=== PATIENT | male | born 1960 | race Caucasian/White ===

== ENCOUNTER 2020-08-15 08:53 | Outpatient (CLI) | payer BC ==
[2020-08-15 12:03] LABS: Hemoglobin 14.9 g/dL (13.5-17.5); Mean Corpuscular HGB CONC 33.5 g/dL (32.0-36.0); Mean Corpuscular Hemoglobin 31.5 pg (27.0-33.0); Mean Corpuscular Volume 94.1 fl (81.2-95.1); Mean Platelet Volume 9.9 fl (7.4-10.4); Platelet Count 250 10x3/uL (150-450); RBC Distribution Width 12.2 % (11.5-14.5); Red Blood Cell (RBC) Count 4.73 10x6/uL (4.32-5.72); White Blood Cell (WBC) Count 5.8 10x3/uL (3.5-10.5)
[2020-08-15 12:34] LABS: Anion Gap 12 mmol/L (10-20); BUN (Urea Nitrogen) 19 mg/dL (8.4-25.7); Calc. Creatinine Clearance 0 mL/min (70-130); Carbon Dioxide 25 mmol/L (22-29); Chloride 105 mmol/L (98-107); Glucose 78 mg/dL (70-105); Potassium 4.6 mmol/L (3.5-5.1); Sodium 137 mmol/L (136-145)
[2020-08-15 18:20] LABS: SARS-CoV-2 PCR by NAA Not Detected (NotDetected)
== END 2020-08-15 08:54 | disposition home or self-care (01) ==
LOC: LABBT 08:53
PROVIDERS: ATTEND Neurological Surgery
DX: Z01.818 Encounter for other preprocedural examination (principal); M43.16 Spondylolisthesis, lumbar region; Z20.822 Contact with and (suspected) exposure to COVID-19
CPT/HCPCS: 80048; 85027; 87635; 93005; 93010; U0003; U0005

== ENCOUNTER 2020-08-20 05:57 | Inpatient (IN) | payer BC ==
[2020-08-20] MEDS ORDERED: Fentanyl 250 MCG/5 ML VIAL ONE (06:55)
[2020-08-20] MEDS ORDERED: Ketorolac Tromethamine 30 MG/ML VIAL ONE (07:25)
[2020-08-20] MEDS ORDERED: Lidocaine 1% PF 5 ML VIAL ONE (07:25)
[2020-08-20] MEDS ORDERED: Dexamethasone 20 MG/5 ML VIAL ONE (07:25)
[2020-08-20] MEDS ORDERED: Ondansetron PF 4 MG/2 ML Vial ONE (07:25)
[2020-08-20] MEDS ORDERED: Glycopyrrolate 0.2 MG/ML 5 ML SYRINGE ONE (07:25)
[2020-08-20] MEDS ORDERED: PROPOFOL 200 MG/20 ML VIAL ONE (07:25)
[2020-08-20] MEDS ORDERED: Rocuronium Bromide 10 MG/ML (10ML VIAL) ONE (07:25)
[2020-08-20] MEDS ORDERED: Fentanyl 100 MCG/2 ML VIAL ONE (09:31)
[2020-08-20] MEDS ORDERED: HYDROcodone/Acetaminophen 5/325 mg Tablet ONE ×2 (11:04→15:53)
[2020-08-20] MEDS ORDERED: Dexamethasone 4 mg/ml Vial ONE (12:03)
[2020-08-20] MEDS ORDERED: Gabapentin 300 MG CAP ONE (12:09)
[2020-08-20 18:12] VITALS: BMI 27.4
[2020-08-20] MEDS: Gabapentin 300 MG CAP PO SCH ×2 (18:19→20:18)
[2020-08-20] MEDS ORDERED: Morphine 4 MG/ML VIAL SLOW IVP PRN ×2 (18:20→18:30)
[2020-08-20] MEDS ORDERED: Ondansetron PF 4 MG/2 ML Vial IM PRN (18:21)
[2020-08-20] MEDS ORDERED: Acetaminophen/Codeine 30-300mg Tablet PO PRN ×2 (18:30)
[2020-08-20] MEDS ORDERED: Promethazine HCl 12.5 MG SUPP PR PRN (18:30)
[2020-08-20] MEDS ORDERED: Milk Of Magnesia 30 ML UDCUP PO PRN (18:30)
[2020-08-20] MEDS ORDERED: diphenhydrAMINE 50 MG/ML VIAL IVP PRN (18:30)
[2020-08-20] MEDS ORDERED: diphenhydrAMINE 25 MG CAP PO PRN (18:30)
[2020-08-20] MEDS ORDERED: traMADol HCl 50 MG TAB PO PRN (18:30)
[2020-08-20] MEDS ORDERED: Promethazine HCl 25 MG/ML VIAL IM PRN (18:30)
[2020-08-20] MEDS ORDERED: Promethazine 25 MG TAB PO PRN (18:30)
[2020-08-20] MEDS: Sodium Chloride 0.9% 1,000 ML IV SCH (20:19)
[2020-08-20] MEDS: traMADol HCl 50 MG TAB PO PRN (20:23)
[2020-08-20] MEDS: Mag-Al 1200 mg/1200 mg/30 ML UDCUP PO PRN (23:16)
[2020-08-21] MEDS: traMADol HCl 50 MG TAB PO PRN ×3 (03:21→22:11)
[2020-08-21] MEDS: Mag-Al 1200 mg/1200 mg/30 ML UDCUP PO PRN (03:26)
[2020-08-21] MEDS: tiZANidine HCl 4 MG TAB PO PRN ×2 (06:58→22:05)
[2020-08-21] MEDS ORDERED: Dexamethasone 4 mg/ml Vial SLOW IVP SCH (07:00)
[2020-08-21] MEDS: Gabapentin 300 MG CAP PO SCH ×3 (08:21→21:03)
[2020-08-21] MEDS: Sodium Chloride 0.9% 1,000 ML IV SCH ×2 (08:21→22:23)
[2020-08-21] MEDS ORDERED: CEFAZOLIN 2 GM in Premix Bag 1 BAG IVPB SCH (16:00)
[2020-08-21] MEDS ORDERED: Sodium Chloride 0.9% 10 ML ONE (16:05)
[2020-08-21] MEDS ORDERED: Fentanyl 100 MCG/2 ML VIAL ONE ×2 (16:25→18:01)
[2020-08-21] MEDS ORDERED: Dexamethasone 20 MG/5 ML VIAL ONE (16:30)
[2020-08-21] MEDS ORDERED: Rocuronium Bromide 10 MG/ML (10ML VIAL) ONE (16:30)
[2020-08-21] MEDS ORDERED: Glycopyrrolate 0.2 MG/ML 5 ML SYRINGE ONE (16:30)
[2020-08-21] MEDS ORDERED: Ondansetron PF 4 MG/2 ML Vial ONE (16:30)
[2020-08-21] MEDS ORDERED: Lidocaine 1% PF 5 ML VIAL ONE (16:30)
[2020-08-21] MEDS ORDERED: PROPOFOL 200 MG/20 ML VIAL ONE (16:30)
[2020-08-21] MEDS ORDERED: CEFAZOLIN 1 GM VIAL SLOW IVP SCH (22:00)
[2020-08-21] MEDS: CEFAZOLIN 2 GM in Premix Bag 1 BAG IVPB SCH (23:25)
[2020-08-22] MEDS: tiZANidine HCl 4 MG TAB PO PRN ×3 (03:49→14:44)
[2020-08-22] MEDS: traMADol HCl 50 MG TAB PO PRN ×2 (05:43→12:34)
[2020-08-22] MEDS: Gabapentin 300 MG CAP PO SCH ×2 (08:33→14:44)
[2020-08-22] MEDS: CEFAZOLIN 2 GM in Premix Bag 1 BAG IVPB SCH (08:58)
[2020-08-22] MEDS: Sodium Chloride 0.9% 1,000 ML IV SCH (11:38)
[2020-08-22 11:53] VITALS: BP 135/83; TEMP 97.7
== END 2020-08-22 15:50 | disposition home or self-care (01) | DRG 460 ==
LOC: SDC 05:57 → OBSVTOIN 13:57 → SURG B 13:57
PROVIDERS: ADMIT Neurological Surgery; ATTEND Neurological Surgery
PROC: 0SG3071 Fusion of Lumbosacral Joint with Autologous Tissue Substitute, Posterior Approach, Posterior Column, Open Approach (ICD-10-PCS; principal; 2020-08-20)
PROC: 01NB0ZZ Release Lumbar Nerve, Open Approach (ICD-10-PCS; 2020-08-20)
PROC: 01NR0ZZ Release Sacral Nerve, Open Approach (ICD-10-PCS; 2020-08-20)
PROC: 0SG3071 Fusion of Lumbosacral Joint with Autologous Tissue Substitute, Posterior Approach, Posterior Column, Open Approach (ICD-10-PCS; 2020-08-21)
PROC: 0SP304Z Removal of Internal Fixation Device from Lumbosacral Joint, Open Approach (ICD-10-PCS; 2020-08-21)
PROC: 3E0U0GB Introduction of Recombinant Bone Morphogenetic Protein into Joints, Open Approach (ICD-10-PCS; 2020-08-21)
DX: M43.17 Spondylolisthesis, lumbosacral region (principal); Z20.822 Contact with and (suspected) exposure to COVID-19; M54.16 Radiculopathy, lumbar region; Z96.652 Presence of left artificial knee joint
CPT/HCPCS: 72131; 76000; 96374; 96375; 96376; C1713; C1768; G0378; J0690; J1100; J1885; J2270; J2405; J2704; J3010; J3370; J3490

== ENCOUNTER 2020-09-07 11:00 | Outpatient (CLI) | payer BC | END 2020-09-07 11:01 | disposition home or self-care (01) | LOC: TBSIIMAG 11:00 | PROVIDERS: ATTEND Neurological Surgery | DX: M43.16 Spondylolisthesis, lumbar region (principal); M43.17 Spondylolisthesis, lumbosacral region; M47.816 Spondylosis without myelopathy or radiculopathy, lumbar region | CPT/HCPCS: 72100 ==